=== PATIENT | female | born 1995 ===

== ENCOUNTER 2018-10-28 10:40 | Emergency (ER) | payer OTHER ==
[2018-10-28 11:05] VITALS: BMI 23.3
--- NOTE | 2018-10-28 12:06 | ED PDOC ---
HPI: Back Time Seen by Provider: 10/28/18 11:23 Chief Complaint (Nursing): ENT Problem Chief Complaint (Provider): Back Pain History Per: Patient, Other (Boyfriend) History/Exam Limitations: no limitations Onset/Duration Of Symptoms: Days (x2) Current Symptoms Are (Timing): Still Present Additional Complaint(s): 23 year old female presents to the ED for evaluation of pain in her back, upper and lower, and in her abdomen going from epigastric area down right thigh. As per patient's boyfriend who she wanted at bedside, patient's symptoms were sudden onset two days ago, but otherwise has not had any cough, fever, or vomiting. Denies strenuous activity prior to symptoms. PMD: none provided Past Medical History Reviewed: Historical Data, Nursing Documentation, Vital Signs Vital Signs: Last Vital Signs Temp 97.8 F 10/28/18 11:06 Pulse 67 10/28/18 11:06 Resp 18 10/28/18 11:06 BP 107/58 L 10/28/18 11:06 Pulse Ox 100 10/28/18 11:06 - Medical History PMH: No Chronic Diseases - Surgical History Surgical History: No Surg Hx - Family History Family History: States: Unknown Family Hx - Social History Current smoker - smoking cessation education provided: No Alcohol: Social Drugs: Cannabis - Home Medications Home Medications: Ambulatory Orders Medication Instructions Recorded Pnv with Ca,No.72/Iron/FA 1 tab PO DAILY #14 tab 10/28/18 [ Vitamins Plus Low Iron] - Allergies Allergies/Adverse Reactions: Allergies Allergy/AdvReac Type Severity Reaction Status Date / Time No Known Allergies Allergy Verified 10/28/18 11:23 Review of Systems ROS Statement: Except As Marked, All Systems Reviewed And Found Negative Constitutional: Negative for: Fever Respiratory: Negative for: Cough Gastrointestinal: Positive for: Abdominal Pain (epigastric radiating down to right leg). Negative for: Vomiting Genitourinary Female: Negative for: Hematuria, Vaginal Discharge, Vaginal Bleeding Musculoskeletal: Positive for: Back Pain (upper and lower) Physical Exam - Reviewed Nursing Documentation Reviewed: Yes Vital Signs Reviewed: Yes - Physical Exam Appears: Positive for: No Acute Distress Head Exam: Positive for: ATRAUMATIC, NORMOCEPHALIC Skin: Positive for: Normal Color Eye Exam: Positive for: Normal appearance, EOMI, PERRL ENT: Positive for: Normal ENT Inspection Neck: Positive for: Normal, Painless ROM, Supple Cardiovascular/Chest: Positive for: Regular Rate, Rhythm Respiratory: Positive for: Normal Breath Sounds. Negative for: Respiratory Distress Gastrointestinal/Abdominal: Positive for: Normal Exam, Soft, Tenderness (diffuse) Back: Positive for: Normal Inspection, Other (diffuse tenderness) Extremity: Positive for: Normal ROM, Tenderness (diffuse bilateral LE) Neurologic/Psych: Positive for: Alert, community action worker II-XII, Oriented (x3), Gait (stable). Negative for: Motor/Sensory Deficits, Aphasia, Facial Droop - Laboratory Results Result Diagrams: 10/28/18 12:21 10/28/18 13:00 - ECG O2 Sat by Pulse Oximetry: 100 (RA) Pulse Ox Interpretation: Normal Medical Decision Making Medical Decision Making: Time: 1157 Initial Impression: body pains rule out electrolyte abnormality, infection Initial Plan: --CMP --CPK --CBC with differential --Urine culture --Urinalysis --U-preg --Ob transvag US 1308 Patient informed at this time of her positive results.she did not know. 18:26 US FINDINGS: UTERUS: Gestational sac: Single live intrauterine gestation is identified. Heart rate: 127 bpm. age (Ultrasound estimated): 6 weeks and 3 days Abida-gestational hemorrhage: None. Date of delivery (Ultrasound estimated) : 06/20/2019 Uterus measures 7.4 x 7.2 x 5.1 cm. Normal in size and appearance. CERVIX: Measures 3.9 cm. Long and closed. No cervical abnormality seen. RIGHT OVARY: Within normal limits LEFT OVARY: Within normal limits FREE FLUID: None. OTHER FINDINGS: Gestational sac measures 18 millimeters. pole measures 6.5 millimeters. IMPRESSION: Single live intrauterine gestation with an estimated gestational age of 6 weeks and 3 days. No subchorionic hemorrhage. No gross adnexal masses identified. Estimated heart rate is 127 beats per minute which should be further correlated clinically. 18:33 --Patient requires no further treatment at this time and is stable for discharge. pt aware of US results. and to take prenatl vitamins., [facility]. Scribe Attestation: Documented by Seble Rand acting as a scribe for Arturo Perez MD. Provider Scribe Attestation: All medical record entries made by the Scribe were at my direction and personally dictated by me. I have reviewed the chart and agree that the record accurately reflects my personal performance of the history, physical exam, medical decision making, and the department course for this patient. I have also personally directed, reviewed, and agree with the discharge instructions and disposition. Disposition - Clinical Impression Clinical Impression: - Patient ED Disposition Is Patient to be Admitted: No Counseled Patient/Family Regarding: Studies Performed, Diagnosis, Need For Followup - Disposition Referrals: [facility] [Outside] [facility] [Outside] Disposition: Routine/Home Disposition Time: 16:31 Condition: IMPROVED Additional Instructions: follow up with your data processing auditor this week return to the ED with any worsening or concerning symptoms such as pain or bleeding Prescriptions: Pnv with Ca,No.72/Iron/FA [ Vitamins Plus Low Iron] 1 tab PO DAILY #14 tab Instructions: - The Second Month Forms: [employer] (Slovenian), [employer] (Tamazight) Print Language: UZBEK
[2018-10-28 12:58] LABS: BASO % 0.3 % (0.0-2.0); EOS # 0.2 K/uL (0.0-0.7); HEMOGLOBIN 13.5 g/dL (12.0-16.0); LYMPH # 2.3 K/uL (1.0-4.3); LYMPH % 22.4 % (20.0-40.0); MEAN CELL VOLUME 90.4 fl (81.0-99.0); MEAN CORPUSCULAR HEMOGLOBIN 31.1 pg (27.0-31.0); MEAN CORPUSCULAR HGB CONC 34.4 g/dL (33.0-37.0); MEAN PLATELET VOLUME 8.8 fl (7.2-11.7); MONO # 0.7 K/uL (0.0-0.8); MONO % 6.8 % (0.0-10.0); NEUT % 68.5 % (50.0-75.0); RBC 4.35 Mil/uL (3.80-5.20); RED CELL DISTRIBUTION WIDTH 13.1 % (11.5-14.5); WHITE BLOOD COUNT 10.2 K/uL (4.8-10.8)
[2018-10-28 13:07] LABS: SQUAMOUS EPITHIAL 5 /hpf (0-5); URINE BACTERIA RARE (<OCC); URINE BILIRUBIN NEGATIVE (NEGATIVE); URINE BLOOD NEGATIVE (NEGATIVE); URINE CLARITY SLIGHTY-CLOUDY (Clear); URINE COLOR YELLOW (YELLOW); URINE GLUCOSE (UA) NEG (NEGATIVE); URINE LEUKOCYTE ESTERASE NEG Leu/uL (Negative); URINE PROTEIN NEGATIVE (NEGATIVE); URINE UROBILINOGEN 0.2-1.0 mg/dL (0.2-1.0)
[2018-10-28 16:03] LABS: ALB/GLOB RATIO 1.1 (1.0-2.1); ALBUMIN 3.9 g/dL (3.5-5.0); ALT/SGPT 31 U/L (9-52); AST/SGOT 73 U/L (14-36); BLOOD UREA NITROGEN 9 mg/dl (7-17); CALCIUM 9.3 mg/dL (8.4-10.2); GFR NON-AFRICAN AMERICAN > 60
[2018-10-28 17:45] VITALS: RESP 16
--- NOTE | 2018-10-28 18:29 | US ---
Date of service: 10/28/2018 PROCEDURE: OB Pelvic Ultrasound HISTORY: with pain LMP: 09/26/2018 COMPARISON: None available. FINDINGS: UTERUS: Gestational sac: Single live intrauterine gestation is identified. Heart rate: 127 bpm. age (Ultrasound estimated): 6 weeks and 3 days Abida-gestational hemorrhage: None. Date of delivery (Ultrasound estimated) : 06/20/2019 Uterus measures 7.4 x 7.2 x 5.1 cm. Normal in size and appearance. CERVIX: Measures 3.9 cm. Long and closed. No cervical abnormality seen. RIGHT OVARY: Within normal limits LEFT OVARY: Within normal limits FREE FLUID: None. OTHER FINDINGS: Gestational sac measures 18 millimeters. pole measures 6.5 millimeters. IMPRESSION: Single live intrauterine gestation with an estimated gestational age of 6 weeks and 3 days. No subchorionic hemorrhage. No gross adnexal masses identified. Estimated heart rate is 127 beats per minute which should be further correlated clinically.
[2018-10-28 18:34] VITALS: O2SAT 100
[2018-10-28 18:53] VITALS: BP 110/58; PULSE 74; TEMP 97.9
== END 2018-10-28 18:50 | disposition home or self-care (01) ==
LOC: H.ER 10:40
DX: O26.91 Pregnancy related conditions, unspecified, first trimester (principal); M79.10 Myalgia, unspecified site; Z3A.01 Less than 8 weeks gestation of pregnancy